=== PATIENT | female | born 1990 | race Caucasian/White ===

== ENCOUNTER 2022-03-21 09:44 | Emergency (ER) | payer OTHER, SELFPAY ==
[2022-03-21 09:45] VITALS: BP 123/83; PULSE 79; RESP 16; TEMP 36.3; O2SAT 98; BMI 29.6
--- NOTE | 2022-03-21 10:17 | CT_ITS ---
STUDY: CT BRAIN WITHOUT CONTRAST REASON FOR EXAM: Female, 31 years old. Paresthesia RADIATION DOSAGE (If Supplied By Facility): CTDIvol = ( 44.99 ) mGy, DLP = ( 782.05 ) mGycm TECHNIQUE: Transaxial CT imaging of the brain was performed without administration of intravenous contrast material. Individualized dose optimization techniques were used for this CT. COMPARISON: No relevant priors. FINDINGS: Normal soft tissue structures. Normal calvarium. Normal size ventricles and extra-axial spaces for the patient''s age. Normal white matter tracts of the cerebral hemispheres. Normal basal ganglia and thalami. Normal brainstem. Normal cerebellum. There is no intracranial hemorrhage. There are no findings of an acute ischemic infarction. Normal visualized paranasal sinuses. CT/Brain/Head without Contrast IMPRESSION: Normal unenhanced CT scan of the brain. Electronically Signed: Hal Strickland MD at 10:28 EDT ,
--- NOTE | 2022-03-21 10:34 | EX.ED.VIS.HA ---
HPI History of Present Illness Chief Complaint: Headache Informant: patient Narrative Narrative: Presenting intermittent generalized headache for 2 weeks. States paresthesias to her bilateral face. She has been having on and off tingling her left upper back laterally for the past year. There is no weakness or paresthesia in the arms. She is unable to see a PCP due to no insurance initially. She also reports weird tingling and swelling the gums that would come and go. She has seen a dentist twice last time a week ago with a cleaning, states everything is normal there is no current swelling she had dental x-rays per patient were negative. However new headaches and paresthesias in the past 2 weeks. Denies head injuries. Denies visual changes. Intermittent Excedrin with some improvement. She currently finished her menstrual period. Denies any chronic medical history. She is unable established with a PCP due to stating no one would take new patients at this time therefore came here. PFSH PFSH Allergy/AdvReac Type Severity Reaction Status Date / Time amoxicillin Allergy PT UNSURE Verified 03/21/22 09:47 OF REACTION Social History Smoking Status: Never smoker ROS ROS ED Constitutional Constitutional ED: Denies chills, fever(s) or sweats Eyes Eyes: Denies change in vision ENT ENT ED: Denies dysphagia or sore throat Cardiovascular Cardiovascular: Denies chest pain, leg edema, palpitations or racing heartbeat Respiratory/Chest Respiratory/Chest: Denies cough, dyspnea or dyspnea on exertion Gastrointestinal Gastrointestinal: Denies abdominal pain, diarrhea, nausea or vomiting Genitourinary Genitourinary ED: Denies dysuria, hematuria or urinary frequency Musculoskeletal Musculoskeletal: Denies back pain, extremity pain or neck pain Integumentary Denies rash or wounds Neurologic Neurologic: Reports headache(s) and paresthesias; Denies weakness EXAM Physical Exam Const Vital Signs: 03/21/22 09:45 03/21/22 11:29 Temperature 97.4 F L Temperature Source Temporal Pulse Rate 79 73 Respiratory Rate 16 18 Blood Pressure 123/83 H 108/60 Blood Pressure Mean 96 Pulse Ox 98 97 Oxygen Delivery Method Room Air Positive well nourished and well developed General Appearance ED: well developed and NAD HEENT Reports moist mucous membranes HEENT Narrative: No trismus no pain at the TMJs, no crepitus. normocephalic and atraumatic Eyes PERRL, EOMs intact bilaterally and conjunctivae normal General Eye ED: Yes normal appearance of both eyes Neck no lymphadenopathy and supple Neck Narrative: No meningismus General: Negative for tenderness Chest Wall Chest: Negative for tenderness Resp normal respiratory effort and normal air movement Effort and Inspection: symmetric chest movement; Negative for respiratory distress Cardio regular rate, regular rhythm and no murmurs Peripheral Pulses: pulses 2+ throughout GI normal to inspection, nondistended, normoactive bowel sounds and non-tender Palpation: Negative for guarding or rebound tenderness present Back/Spine no CVA tenderness and no thoracic nor lumbar tenderness Extremity normal to inspection General Extremety ED: Negative for edema or tenderness General Extremity: Negative for edema Neuro oriented x3, CN's II-XII intact bilaterally and no sensory deficits noted Sensorium / Orientation: awake and alert Skin no rashes or lesions noted and no wounds MDM MDM MDM Narrative Medical decision making narrative: Patient with no focal deficits to onset headaches with paresthesias. Bilateral therefore lower suspicion for stroke symptoms. Head CT obtained negative. She is treated with Toradol with significant improvement of symptoms. She is given follow-up with neurology as an outpatient for evaluation along with a PCP. All questions were answered. Radiography Diagnostic Testing: Clinical Impression(s) from Imaging Studies Brain CT 03/21/22 10:17 IMPRESSION: Normal unenhanced CT scan of the brain. Electronically Signed: Hal Strickland MD at 10:28 EDT Reading Location ID and State: [address] [place] [address] , Service support , Discharge Plan Triage Chief Complaint: Headache ED Provider: Kristofer Blackwell Dx/Rx/DC Orders Clinical Impression: Headache, Facial paresthesia Instructions: ED Headache Unspecified, ED Paraesthesias Primary Care Provider: Care Physician,No Primary Referrals: Maite Antony MD [STAFF PHYSICIAN] - 1 Week Saurav Mock MD [STAFF PHYSICIAN] - 1 Week NOT,DEFINED [NON-STAFF] - Disposition Disposition: Home, Self Care Discharge Date/Time: 03/21/22 11:30
[2022-03-21] MEDS: Ketorolac 30 MG/ML Syringe IM (10:43)
[2022-03-21 11:29] VITALS: BP 108/60; PULSE 73; RESP 18; O2SAT 97
== END 2022-03-21 11:30 | disposition home or self-care (01) ==
PROVIDERS: Emergency Provider Emergency Medicine; Visit Provider Emergency Medicine
DX: R51.9 Headache, unspecified (principal); R20.2 Paresthesia of skin
CPT/HCPCS: 70450; 96372; 99282